=== PATIENT | male | born 1985 | race African-American/Black ===

== ENCOUNTER 2017-09-27 12:17 | Emergency (ER) | payer SELFPAY ==
[2017-09-27 13:52] VITALS: BP 113/77
[2017-09-27] MEDS ORDERED: Ketorolac INJ* 60 MG/2 ML VIAL IM ONE ×2 (13:59)
[2017-09-27] MEDS ORDERED: methylPREDNISolone 125 MG* 2 ML VIAL IM ONE (14:01)
[2017-09-27] MEDS ORDERED: methylPREDNISolone SOD 40 MG* 1 ML VIAL IM ONE (14:02)
--- NOTE | 2017-09-27 15:51 | UC ---
Ear Complaint HPI - HPI Summary HPI Summary: Patient is otherwise healthy 31-year-old male presenting to the with chief complaint of bilateral decreased hearing, ringing sensation, worse in the morning and better in the evening. He has not tried anything [id number] for relief. Denies any URI symptoms. He has never had cerumen buildup or wax removed from his ears. Symptoms have remained for approximately 2 months. - History of Current Complaint Hx Obtained From: Patient Onset/Duration: Sudden Onset Severity Initially: Moderate Severity Currently: Moderate Pain Intensity: 0 Pain Scale Used: 0-10 Numeric Associated Signs/Symptoms: Positive: Hearing Loss, Foreign Body Sensation <Alyssa Mckee - Last Filed: 09/27/17 15:49> <Bhavya Pascal - Last Filed: 09/30/17 07:47> - History of Current Complaint Chief Complaint: UCEar Stated Complaint: EAR PAIN Time Seen by Provider: 09/27/17 13:41 - Allergies/Home Medications Allergies/Adverse Reactions: Allergies Allergy/AdvReac Type Severity Reaction Status Date / Time No Known Allergies Allergy Verified 09/27/17 13:52 Home Medications: Home Medications NK [No Home Medications Reported] 09/27/17 [History Confirmed 09/27/17] PMH/Surg Hx/FS Hx/Imm Hx Previously Healthy: Yes - Surgical History Surgical History: None - Family History Known Family History: Positive: Unknown - Social History Occupation: Employed Part-time Lives: With Family Alcohol Use: Occasionally Substance Use Type: Marijuana Substance Use Comment - Amount & Last Used: every 2 weeks Smoking Status (MU): Current Some Day Smoker Type: Cigarettes <Alyssa Mckee - Last Filed: 09/27/17 15:49> Review of Systems Constitutional: Negative Skin: Negative Eyes: Negative ENT: Ear Ache, Other - Decreased hearing Respiratory: Negative Cardiovascular: Negative Motor: Negative Neurovascular: Negative Neurological: Negative Is Patient Immunocompromised?: No All Other Systems Reviewed And Are Negative: Yes <Alyssa Mkcee - Last Filed: 09/27/17 15:49> Physical Exam Triage Information Reviewed: Yes Appearance: Well-Appearing, Well-Nourished Vital Signs: Initial Vital Signs Temp 98.4 F 09/27/17 13:49 Pulse 66 09/27/17 13:49 Resp 18 09/27/17 13:49 BP 113/77 09/27/17 13:49 Pulse Ox 100 09/27/17 13:49 Vital Signs Reviewed: Yes Eye Exam: Normal Eyes: Positive: Conjunctiva Clear Neck exam: Normal Neck: Positive: Supple, No Lymphadenopathy Respiratory Exam: Normal Respiratory: Positive: Chest non-tender, Lungs clear Cardiovascular Exam: Normal Cardiovascular: Positive: RRR Musculoskeletal Exam: Normal Musculoskeletal: Positive: Strength Intact Neurological Exam: Normal Psychological: Positive: Normal Response To Family Skin Exam: Normal <Alyssa Mckee - Last Filed: 09/27/17 15:49> Vital Signs: Initial Vital Signs Temp 98.4 F 09/27/17 13:49 Pulse 66 09/27/17 13:49 Resp 18 09/27/17 13:49 BP 113/77 09/27/17 13:49 Pulse Ox 100 09/27/17 13:49 <Bhavya Pascal - Last Filed: 09/30/17 07:47> Ear Complaint Course/Dx - Course Course Of Treatment: During the course of treatment, the TMs are unable to be visualized there is cerumen impaction bilaterally. Irrigated bilateral ears with hydrogen peroxide and normal saline with good effect. Copious amounts of same and discharge. Patient is feeling much improved. - Differential Dx/Diagnosis Provider Diagnoses: Cerumen impaction <Alyssa Mckee - Last Filed: 09/27/17 15:49> Discharge - Sign-Out/Discharge Documenting (check all that apply): Discharge/Admit/Transfer - Billing Disposition and Condition Condition: STABLE Disposition: HOME <Alyssa Mckee - Last Filed: 09/27/17 15:49> - Billing Disposition and Condition Condition: STABLE Disposition: HOME <Bhavya Pascal - Last Filed: 09/30/17 07:47> - Discharge Plan Condition: Stable Disposition: HOME Patient Education Materials: Cerumen Impaction (ED) Referrals: No Primary Care Phys,NOPCP [Primary Care Provider] - Additional Instructions: Please follow up with PCP for any worsening or changing symptoms Attestation Statement User Type: Provider - I was available for consult. This patient was seen by the ART. The patient was not presented to, seen by, or examined by me. -Zainab <Bhavya Pascal - Last Filed: 09/30/17 07:47>
== END 2017-09-27 15:02 | disposition home or self-care (01) ==
LOC: UCEAST 12:17
DX: H61.23 Impacted cerumen, bilateral (principal); Z72.0 Tobacco use
CPT/HCPCS: 99213; G0463

== ENCOUNTER 2019-04-21 16:58 | Emergency (ER) | payer OTHER ==
--- NOTE | 2019-04-21 17:49 | ED ---
GI/ HPI - HPI Summary HPI Summary: 33 year old male presents with left side pain for the past day. He admits to dysuria. No penile discharge. No testicular pain. He states that his side feels warm. He states that has more pain when he moves his arms. He denies any chest pain or shortness of breath pain. He denies any injury. He denies any fevers. No history of UTIs. He states he tried azo and drinking fluids and is feeling better. He denies any diarrhea or constipation. he has no past medical conditions. - History of Current Complaint Chief Complaint: EDFlankPain Time Seen by Provider: 04/21/19 17:39 Stated Complaint: LEFT FLANK PAIN Pain Intensity: 3 - Allergy/Home Medications Allergies/Adverse Reactions: Allergies Allergy/AdvReac Type Severity Reaction Status Date / Time No Known Allergies Allergy Verified 04/21/19 17:05 PMH/Surg Hx/FS Hx/Imm Hx Endocrine/Hematology History: Denies: Hx Diabetes Cardiovascular History: Denies: Hx Hypertension, Hx Pacemaker/ICD History: Denies: Hx Renal Disease Sensory History: Reports: Hx Hearing Aid Psychiatric History: Denies: Hx Panic Disorder - Surgical History Surgery Procedure, Year, and Place: DENIES Infectious Disease History: No Infectious Disease History: Denies: Traveled Outside the [place] in Last 30 Days - Family History Known Family History: Positive: Unknown - Social History Alcohol Use: Occasionally Substance Use Type: Reports: Marijuana Substance Use Comment - Amount & Last Used: every 2 weeks Smoking Status (MU): Current Some Day Smoker Type: Cigarettes Review of Systems Negative: Fever Negative: Chest Pain Negative: Shortness Of Breath Negative: Vomiting, Nausea Positive: dysuria, flank pain All Other Systems Reviewed And Are Negative: Yes Physical Exam Triage Information Reviewed: Yes Vital Signs On Initial Exam: Initial Vitals Temp Pulse Resp BP Pulse Ox 97.9 F 70 16 139/88 99 04/21/19 17:02 04/21/19 17:02 04/21/19 17:02 04/21/19 17:02 04/21/19 17:02 Vital Signs Reviewed: Yes Appearance: Positive: Well-Appearing Skin: Positive: Warm, Dry Head/Face: Positive: Normal Head/Face Inspection Eyes: Positive: Normal, Conjunctiva Clear ENT: Positive: Pharynx normal Respiratory/Lung Sounds: Positive: Clear to Auscultation, Breath Sounds Present Cardiovascular: Positive: Normal, RRR Abdomen Description: Positive: Nontender, Soft. Negative: CVA Tenderness (R), CVA Tenderness (L) Bowel Sounds: Positive: Present Musculoskeletal: Positive: Normal Neurological: Positive: Normal Procedures - Sedation Patient Received Moderate/Deep Sedation with Procedure: No Diagnostics - Vital Signs Vital Signs Temp Pulse Resp BP Pulse Ox 04/21/19 17:02 97.9 F 70 16 139/88 99 - Laboratory Result Diagrams: 04/21/19 18:02 04/21/19 18:03 Lab Statement: Any lab studies that have been ordered have been reviewed, and results considered in the medical decision making process. - Ultrasound No standard instances Ultrasound Interpretation Completed By: Radiologist Summary of Ultrasound Findings: IMPRESSION: Sonographically normal kidneys. GIGU Course/Dx - Course Course Of Treatment: 33 year old male presents with left side pain for the past day. He admits to dysuria. No penile discharge. No testicular pain. He states that his side feels warm. He states that has more pain when he moves his arms. He denies any chest pain or shortness of breath pain. He denies any injury. He denies any fevers. No history of UTIs. He states he tried azo and drinking fluids and is feeling better. He denies any diarrhea or constipation. he has no past medical conditions. On exam month nontender abd and negative CVA tenderness. States though his pain over left flank and down. wbc normal. crp normal. u/s shows no acute findings. urine shows no infection. pain is likely muscular. told to take tyenlol or ibuprofen. patient understand and agrees with plan. - Diagnoses Differential Diagnoses - Male: Ureteral Calculi, Urinary Tract Infection, Other - strain Provider Diagnoses: Flank pain Discharge ED - Sign-Out/Discharge Documenting (check all that apply): Patient Departure - Discharge Plan Condition: Good Disposition: HOME Patient Education Materials: Flank Pain (ED) Referrals: [facility] [place] [facility] [Outside] Additional Instructions: take tyenlol or ibuprofen every 6 hours apply heat establish care with primary Return to ED if develop any new or worsening symptoms - Billing Disposition and Condition Condition: GOOD Disposition: Home
[2019-04-21 18:10] LABS: Hematocrit 43 % (42-52); Hemoglobin 14.3 g/dL (14.0-18.0); Mean Corpuscular HGB Conc 34 g/dL (31-36); Mean Corpuscular Hemoglobin 30 pg (27-31); Mean Corpuscular Volume 90 fL (80-94); Mean Platelet Volume 10.3 fL (7.4-10.4); Platelet Count 193 10^3/uL (150-450); Red Blood Count 4.77 10^6 /uL (4.18-5.48); Red Cell Distribution Width 14 % (10-15); White Blood Count 5.5 10^3/uL (3.5-10.8)
[2019-04-21 18:13] LABS: ABS Basophils 0.1 10^3/ul (0-0.2); ABS Eosinophils 0.1 10^3/ul (0-0.6); ABS Lymphocytes 1.8 10^3/ul (1.0-4.8); ABS Monocytes 0.5 10^3/ul (0-0.8); ABS Neutrophils 3.3 10^3/ul (1.5-7.7)
[2019-04-21] MEDS ORDERED: Ketorolac INJ* 30 MG/ML 1 ML VIAL IM ONE (18:24)
[2019-04-21 18:30] LABS: ALT 12 U/L (7-52); AST 16 U/L (13-39); Albumin 4.5 g/dL (3.2-5.2); Albumin/Globulin Ratio 1.6 (1-3); Alkaline Phosphatase 39 U/L (34-104); Anion Gap 6 mmol/L (2-11); Blood Urea Nitrogen 7 mg/dL (6-24); C Reactive Protein < 1.00 mg/L (<8.01); CO2 Carbon Dioxide 29 mmol/L (22-32); Calcium 9.7 mg/dL (8.6-10.3); Chloride 98 mmol/L (101-111); EGFR African American 123.8 (>60); EGFR Non-African American 102.3 (>60); Globulin 2.8 g/dL (2-4); Glucose 90 mg/dL (70-100); Potassium 4.6 mmol/L (3.5-5.0); Sodium 133 mmol/L (135-145); Total Protein 7.3 g/dL (6.4-8.9)
[2019-04-21 18:38] LABS: Urine Appearance Clear; Urine Bilirubin Negative (Negative); Urine Blood Negative (Negative); Urine Color Yellow; Urine Glucose Negative (Negative); Urine Ketones Negative (Negative); Urine Nitrite Negative (Negative); Urine Protein Negative (Negative); Urine Specific Gravity 1.002 (1.010-1.030); Urine Urobilinogen Negative (Negative)
[2019-04-21 20:03] VITALS: BP 129/79
[2019-04-22 12:15] LABS: Chlamydia trachomatis NAA Negative (Negative); Neisseria gonorrhoeae (GC) NAA Negative (Negative)
== END 2019-04-21 20:00 | disposition home or self-care (01) ==
LOC: ED 16:58
DX: R10.32 Left lower quadrant pain (principal); F17.210 Nicotine dependence, cigarettes, uncomplicated
CPT/HCPCS: 36415; 76775; 80053; 81003; 83690; 85025; 86140; 87491; 87591; 96372; 99282; J1885